=== PATIENT | male | born 1980 | race Caucasian/White ===

== ENCOUNTER 2018-09-29 15:16 | Emergency (ER) | payer OTHER ==
[2018-09-29 15:20] VITALS: BP 140/94; PULSE 107; RESP 18; TEMP 98
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
== END 2018-09-29 16:41 | disposition home or self-care (01) ==
LOC: EC 15:16
DX: S09.90XA Unspecified injury of head, initial encounter (principal); M54.2 Cervicalgia; Z91.013 Allergy to seafood; V47.5XXA Car driver injured in collision with fixed or stationary object in traffic accident, initial encounter; Y92.89 Other specified places as the place of occurrence of the external cause
CPT/HCPCS: 70450; 72125; 99284